=== PATIENT | female | born 1965 | race Caucasian/White ===

== ENCOUNTER 2020-06-04 10:36 | Inpatient (IN) | payer OTHER, SELFPAY ==
--- NOTE | ~2020-06-04 | XR_ITS ---
EXAMINATION: XR CHEST CLINICAL INFORMATION: Chest pain COMPARISON: Chest radiographs 05/20/2009 TECHNIQUE: Frontal view of the chest was obtained. FINDINGS: The lungs are clear. There is no airspace consolidation or groundglass opacity. No pneumothorax, pleural reaction, or effusion. The heart is normal in size and the hilar and mediastinal contours are normal. No acute bony abnormality. Probable bone island overlying proximal medial right humerus is stable from remote radiographs 2009. XR/XR chest 1V IMPRESSION: Normal study.
[2020-06-04 10:51] VITALS: BP 150/96; PULSE 83; RESP 17; TEMP 37.1; O2SAT 100; BMI 29.1
--- NOTE | 2020-06-04 11:12 | ECG_ITS ---
Test Reason : WEAKNESS Blood Pressure : / mmHG Vent. Rate : 070 BPM Atrial Rate : 070 BPM P-R Int : 136 ms QRS Dur : 108 ms QT Int : 474 ms P-R-T Axes : 027 060 129 degrees QTc Int : 511 ms Normal sinus rhythm Cannot rule out Anterior infarct , age undetermined T wave abnormality, consider lateral ischemia Prolonged QT Abnormal ECG When compared with ECG of 21-MAY-2009 07:21, Minimal criteria for Anterior infarct are now Present T wave inversion now evident in Lateral leads Referred By: Joelle Hubbard Electronically Signed By:GILLIAN VICTORIA
--- NOTE | 2020-06-04 11:14 | ED.GENADULT ---
HPI - General Adult General Chief complaint: Back Pain/Injury Stated complaint: headache, back pain Time Seen by Provider: 06/04/20 11:11 Source: patient Mode of arrival: ambulatory History of Present Illness HPI narrative: 54-year-old Female with a past medical history of hypertension presenting to the ED complaining of substernal chest tightness/soreness radiating to right shoulder s/p vigorous walk last night. Reports feeling anxious about symptoms and worried about her heart, with mild associated SOB. Denies fever, chills, cough, abdominal pain, nausea/vomiting, numbness/tingling, neck/back pain, LE edema, recent travel Related Data Allergies Allergy/AdvReac Type Severity Reaction Status Date / Time No Known Allergies Allergy Unverified 11/29/19 15:57 Review of Systems Review of Systems: Constitutional: No Fever, No Chills, No Fatigue, No Malaise Cardiovascular: + Chest Pain, +SOB, No Edema, No Palpitations Respiratory: No Cough, No Dyspnea Gastrointestinal: No Nausea, No Vomiting, No Abdominal pain Musculoskeletal: No joint pain, No Myalgias, No Joint Swelling Skin: No Skin Lesions, No rash Neuro: No Weakness, No Numbness, No Paresthesias, No Dizziness Yes all other systems are reviewed and are negative FORMERLY [facility], [facility] Past Medical History Attestation statement: The following information was validated with the patient. Medical History (Updated 06/04/20 @ 12:54 by GONZALES Moore) HTN (hypertension) Social History Social History Alcohol intake: never Smoking Status: Never smoker Use of substances other than those prescribed or required for medical reasons: No Advance Directives: No (pt doesnt have one) Advance Directives Information Provided: Yes Physical Exam Vital Signs: Vital Signs: Last Vital Signs Temp 98.7 F 06/04/20 12:40 Pulse 70 06/04/20 12:40 Resp 18 06/04/20 12:40 BP 137/92 H 06/04/20 12:40 Pulse Ox 100 06/04/20 12:40 Body Mass Index 29.1 Const: Other: Anxious General: cooperative, healthy appearing and no acute distress Orientation/consciousness: patient oriented x3 Limitations: no limitations HENMT: Head: Yes normal to inspection Ears: hearing grossly normal bilaterally General nose exam: Normal external nose present Face and sinus: Yes normal facial exam Eyes: General: appearance normal, both eyes and all related structures EOM: EOMs intact bilaterally Neck: Neck: Yes normal visual inspection and Yes no meningeal signs Chest: Chest palpation & inspection: normal inspection of the chest and no crepitus Resp: Effort & Inspection: normal respiratory effort Auscultation: clear to auscultation bilaterally Cardio: Rate: regular rate Heart sounds: S1 normal heart sound present and S2 normal heart sound present Back/Spine/Pelvis: Other: Mild right upper scapular tenderness to palpation. No appreciable deformity. No midline thoracic/lumbar spinous tenderness Skin: Rashes: no rashes Wounds: no wounds Neuro: General: patient oriented x3 and no meningeal signs Gait exam (Neuro): Normal gait present Extrem: General: Yes normal to inspection Course Course Course Narrative: XR chest 1V IMPRESSION: Normal study. -1236--troponin elevated at 714 >> patient moved to Main ED, cardiology consulted >> completely echo ordered and heparin drip initiated per cardiology recs Medical Decision Making MDM Narrative Medical decision making narrative: 54-year-old Female with a past medical history of hypertension presenting to the ED complaining of substernal chest tightness/soreness radiating to right shoulder s/p vigorous walk last night. On exam VSS, NAD/well-appearing, anxious, right upper back/scapular tenderness to palpation, patient is nontoxic appearing, concern for anxiety reaction vs MSK pain vs ACS. Unlikely PE/CHF/pneumonia. Low concern for dissection Plan: EKG, labs, CXR, reassess Lab Data Result diagrams: 06/04/20 11:51 06/04/20 11:51 Labs: Lab Results 06/04/20 06/04/20 06/04/20 Range/Units 11:51 11:51 11:51 WBC 8.4 (4.8-10.8) X10*3/uL RBC 4.24 (4.20-5.50) X10*6/uL Hgb 12.8 (12.0-16.0) g/dl Hct 37.1 (37-47) % MCV 87.5 (80-98) fL MCH 30.2 (27.0-33.0) pg MCHC 34.5 (31.0-35.0) g/dl RDW 11.9 (11.0-16.0) % Plt Count 207 (160-400) X10*3/uL MPV 10.0 (9.4-12.3) fL Immature Gran % (Auto) 0.4 (0.0-0.4) % Neut % (Auto) 66.4 (45-73) % Lymph % (Auto) 23.7 (20-40) % Piatt % (Auto) 8.5 (2-11) % Eos % (Auto) 0.6 (0-4) % Baso % (Auto) 0.4 (0-2) % Lymph # (Auto) 2.0 (1.2-4.9) X10*3/uL Piatt # (Auto) 0.7 (0.1-1.2) X10*3/uL Eos # (Auto) 0.1 (0.0-0.4) X10*3/uL Baso # (Auto) 0.0 (0.0-0.2) X10*3/uL Abs Immat Gran (auto) 0.03 (0.00-0.03) X10*3/uL Absolute Neuts (auto) 5.6 (2.0-8.3) X10*3/uL Absolute Nucleated RBC 0.000 (0.0-0.012) X10*3/uL Nucleated RBC % (auto) 0.0 (0.0-0.2) /100WBC Hold Blue Top SEE NOTE Sodium 137 (135-145) mmol/L Potassium 4.2 (3.3-5.1) mmol/L Chloride 102 (96-108) mmol/L Carbon Dioxide 22 (22-29) mmol/L Anion Gap 17 (12-20) BUN 16 (9-16) mg/dL Creatinine 0.87 (0.5-1.4) mg/dL Estim Creat Clear Calc 76.9 Estimated GFR > 60 Random Glucose 244 H (60-115) mg/dL Calcium 9.3 (8.4-10.2) mg/dL Magnesium 1.7 (1.6-2.6) mg/dL Troponin I High Sens (<3.5-17.0) ng/L // Range/Units 11:51 WBC (4.8-10.8) X10*3/uL RBC (4.20-5.50) X10*6/uL Hgb (12.0-16.0) g/dl Hct (37-47) % MCV (80-98) fL MCH (27.0-33.0) pg MCHC (31.0-35.0) g/dl RDW (11.0-16.0) % Plt Count (160-400) X10*3/uL MPV (9.4-12.3) fL Immature Gran % (Auto) (0.0-0.4) % Neut % (Auto) (45-73) % Lymph % (Auto) (20-40) % Piatt % (Auto) (2-11) % Eos % (Auto) (0-4) % Baso % (Auto) (0-2) % Lymph # (Auto) (1.2-4.9) X10*3/uL Piatt # (Auto) (0.1-1.2) X10*3/uL Eos # (Auto) (0.0-0.4) X10*3/uL Baso # (Auto) (0.0-0.2) X10*3/uL Abs Immat Gran (auto) (0.00-0.03) X10*3/uL Absolute Neuts (auto) (2.0-8.3) X10*3/uL Absolute Nucleated RBC (0.0-0.012) X10*3/uL Nucleated RBC % (auto) (0.0-0.2) /100WBC Hold Blue Top Sodium (135-145) mmol/L Potassium (3.3-5.1) mmol/L Chloride (96-108) mmol/L Carbon Dioxide (22-29) mmol/L Anion Gap (12-20) BUN (9-16) mg/dL Creatinine (0.5-1.4) mg/dL Estim Creat Clear Calc Estimated GFR Random Glucose (60-115) mg/dL Calcium (8.4-10.2) mg/dL Magnesium (1.6-2.6) mg/dL Troponin I High Sens 714.0 H (<3.5-17.0) ng/L ECG Data Attestation: I personally reviewed and interpreted this ECG as follows: Interpretation: EKG normal sinus rhythm. Inverted T-waves in V4 through V6. Prolonged QTC of 511 Discharge Plan Discharge Clinical Impression: Acute non-ST elevation myocardial infarction (NSTEMI)
[2020-06-04 11:56] LABS: MANUAL DIFF FLAG NO
[2020-06-04 11:57] LABS: Basophils Percent Auto 0.4 % (0-2); Eosinophils Absolute Auto 0.1 X10*3/uL (0.0-0.4); Eosinophils Percent Auto 0.6 % (0-4); Hematocrit 37.1 % (37-47); Hemoglobin 12.8 g/dl (12.0-16.0); Imm Gran Abs Auto 0.03 X10*3/uL (0.00-0.03); Imm Gran Pct Auto 0.4 % (0.0-0.4); Lymphocytes Percent Auto 23.7 % (20-40); Mean Corpuscular HGB Conc 34.5 g/dl (31.0-35.0); Mean Corpuscular Hemoglobin 30.2 pg (27.0-33.0); Mean Corpuscular Volume 87.5 fL (80-98); Monocytes Absolute Auto 0.7 X10*3/uL (0.1-1.2); Monocytes Percent Auto 8.5 % (2-11); Neutrophils Absolute Auto 5.6 X10*3/uL (2.0-8.3); Neutrophils Percent Auto 66.4 % (45-73); Platelet Count 207 X10*3/uL (160-400); Red Blood Count 4.24 X10*6/uL (4.20-5.50); Red Cell Distribution Width 11.9 % (11.0-16.0); White Blood Count 8.4 X10*3/uL (4.8-10.8)
[2020-06-04 12:18] LABS: Anion Gap 17 (12-20); Blood Urea Nitrogen 16 mg/dL (9-16); Calcium 9.3 mg/dL (8.4-10.2); Carbon Dioxide 22 mmol/L (22-29); Chloride 102 mmol/L (96-108); Creatinine Clr Calc Pharmacy 76.9; Estimated Glomerular Filt Rate > 60; Glucose Random 244 mg/dL (60-115); Magnesium 1.7 mg/dL (1.6-2.6); Potassium 4.2 mmol/L (3.3-5.1); Sodium 137 mmol/L (135-145)
[2020-06-04 12:40] VITALS: BP 137/92; PULSE 70; RESP 18; TEMP 37.1; O2SAT 100
--- NOTE | 2020-06-04 12:40 | CA_ITS ---
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 The visually estimated ejection fraction is between 25-30%. - The entire apex, the mid anterolateral, mid inferoseptal, and mid anteroseptal segments are akinetic. - No obvious valvular pathology seen on this study. - Mild pulmonary hypertension is present. Findings Left Ventricle Normal left ventricular cavity size. There is mildly increased left ventricular wall thickness. The left ventricular systolic function is severely decreased. The visually estimated ejection fraction is between 25 30%. There is evidence of regional wall motion abnormalities. Evidence suggests grade I (mild) diastolic dysfunction. Wall Motion Rest Echo Findings The entire apex, the mid anterolateral, mid inferoseptal, and mid anteroseptal segments are akinetic. Right Ventricle Normal right ventricular cavity size and systolic function. Atria Both atria are normal in size. Aortic Valve There is a normal trileaflet aortic valve. There is no aortic valve stenosis. There is no aortic valve regurgitation. Mitral Valve The mitral valve appears normal. There is trace mitral valve regurgitation. There is no mitral valve stenosis. Pulmonic Valve The pulmonic valve was not well visualized. Tricuspid Valve Normal tricuspid valve structure. There is mild tricuspid valve regurgitation. The right ventricular systolic pressure is 36 mmHg. Mild pulmonary hypertension is present. Great Vessels The aortic annulus, sinuses of valsalva, and asc aorta are normal in size. Venous The inferior vena cava is normal in size and collapses greater than 50% with inspiration. Pericardium/Pleural There is no evidence of pericardial effusion. Prior Study Comparison No prior study available for comparison. Recommendations, Care & Conclusions No obvious valvular pathology seen on this study. Measurements 2D Linear Measurements IVSd: 1.27 0.6-0.9/0.6-1.0 cm LVIDd: 4.20 3.9-5.3/4.2-5.9 cm LVIDd Index: 2.25 2.4-3.2/2.2-3.1 cm/m2 LVIDs: 3.60 2.0-3.6 cm LVPWd: 1.27 0.7-1.1 cm Ao Root: 3.10 2.1-3.5 cm LA Diam: 3.60 2.7-3.8/3.0-4.0 cm LAIDs Index: 1.93 1.5-2.3 cm/m2 LV Mass: 241.38 67-162/88-224 g LV Mass Index: 129.08 43-95/49-115 g/m2 LVOT Diam: 2.20 3.0+(-)1.3 cm 2D Systolic Function EF 4C: 32.20 >55% EF 2C: 20.00 >55% EF BiP: 24.50 >55% Mitral Valve MV Pk E: 0.52 MV PK A: 1.02 MV Decel Time: 116.00 E/A: 0.50 E'Lateral: 3.96 E'Medial: 7.35 E/E' Med: 7.10 E/E' Lat: 13.10 PHT: 34.00 MVA PHT: 6.47 Decel Larimer: 4.47 Aortic Valve AoV Pk Cornel: 1.27 AoV Mn Cornel: 0.80 AoV VTI: 0.28 AoV Pk Grad: 6.00 Aov Mn Grad: 3.00 SONU Cont.VTI: 2.21 LVOT LVOT Pk Cornel: 0.78 LVOT Mn Cornel: 0.51 LVOT VTI: 0.16 LVOT Pk Grad: 2.00 LVOT Mn Grad: 1.00 LVOT Diam: 2.20 LVOT Area: 3.80 Diastolic Function MV Pk E: 0.52 MV Pk A: 1.02 E/A: 0.50 E'Medial: 7.35 E/E' Med: 7.10 E' Laterial: 3.96 E/E' Lat: 13.10 Tricuspid Valve TR Pk Cornel: 2.86 TR Pk Grad: 33.00 RA Press: 3.00 RVSP: 36.00 Great Vessels Aorta Ao Root-2D: 3.10 2.0-3.7 cm Ao Asc: 3.00 2.1-3.4 cm Pulmonary Valve PV Pk Cornel: 1.00 Peak PV Grad: 4.00 Updated in Other Vendor System with Status of Final Jose Swanson MD electronically signed on 06/04/2020 4:09:27 PM with status of Final
[2020-06-04 12:45] LABS: Prothrombin Time 12.4 SEC (10.8-13.0)
[2020-06-04 12:47] LABS: Partial Thromboplastin Time 34.1 SEC (24.1-38.0)
[2020-06-04 12:55] LABS: Alanine Aminotransferase 84 U/L (0-31); Albumin Level 4.4 g/dL (3.5-5.0); Alkaline Phosphatase 77 U/L (39-117); Aspartate Amino Transferase 63 U/L (5-31); Bilirubin Direct 0.2 mg/dL (0.0-0.5); Bilirubin Total 0.5 mg/dL (0.0-1.0)
[2020-06-04 13:14] LABS: B Type Natriuretic Peptide 317 pg/mL (<100)
[2020-06-04 13:49] VITALS: BMI 31.1
[2020-06-04] MEDS: Heparin Sodium,Porcine/1/2NS 25,000 UNIT/250 ML IV.SOLN 10 UNIT IVCONT (13:51)
[2020-06-04 14:11] LABS: COVID-19 Test Negative (Negative); IDNOW Serial# 9DD0AD1C
[2020-06-04 15:21] VITALS: BP 133/88; PULSE 78; RESP 13; O2SAT 100
[2020-06-04 15:39] VITALS: BP 128/91; PULSE 83; RESP 17; TEMP 36.7; O2SAT 100
--- NOTE | 2020-06-04 15:41 | PM.IMHP ---
History of Present Illness Date of Service: 06/04/20 Chief Complaint: neck pain 54F presented with vague complaints of neck and right shoulder pain and chest pounding. patient states she went for a vigorous walk the night ptp and starting feeling uncomfortable after. she took some aspirin and decided to sleep on it. the next morning she still felt the neck pain, right shoulder aching and chest pounding. she denies sob, chills, fever, cough, diaphoresis. denies prior RI, reports remote negative stress test. in ED noted to have ischemic changes on EKG and troponin of 700. she was started on heparin. Review of Systems Review of Systems: Constitutional: Denies fever, denies Chills Eyes: denies blurry vision ENT: denies sore throat CVS: chest pain Respiratory: Denies dyspnea GI: no abdominal pain : denies dysuria MSK: denies neck pain Skin: denies rash Neuro: denies specific motor weakness Psych: denies suicidal ideation Endocrine: denies heat/cold intoleratnce Hematologic: denies easy bleeding Allergy: denies hives [facility] Medical History DM (diabetes mellitus) HTN (hypertension) HUDSON (nonalcoholic steatohepatitis) Family History Father No problems noted. Family history: reviewed and not pertinent Social History Alcohol intake: never Smoking Status: Never smoker Use of substances other than those prescribed or required for medical reasons: No Advance Directives: No (pt doesnt have one) Advance Directives Information Provided: Yes Meds Allergies Allergy/AdvReac Type Severity Reaction Status Date / Time No Known Allergies Allergy Unverified 11/29/19 15:57 Active Medications: Current Medications Generic Name Dose Route Start Last Admin Trade Name Freq PRN Reason Stop Dose Admin Heparin Sodium (Porcine) 3,200 unit 06/04/20 12:50 Heparin Sodium,Porcine 5,000 Unit/Ml Vial 40 unit/kg (3200 unit) IVPUSH BOLUS PRN 40 unit/kg - Heparin Protocol Heparin Sodium (Porcine) 6,400 unit 06/04/20 12:50 Heparin Sodium,Porcine 5,000 Unit/Ml Vial 80 unit/kg (6400 unit) IVPUSH BOLUS PRN 80 unit/kg - Heparin Protocol Heparin Sodium/Sodium Chloride 25,000 unit in 250 mls @ 0 mls/hr 06/04/20 13:00 06/04/20 13:51 IVCONT 12.6 units/kg/hr .Q0M JAIME 10 mls/hr Administration Protocol Per Protocol Pharmacy Consult 1 each 06/04/20 13:15 Consult Rx Perform Med Rec MISCELLANE ONCE PRN Consult order Pharmacy Consult 1 each 06/04/20 14:38 Consult Rx Perform Med Rec MISCELLANE ONCE PRN Consult order Physical Exam Vital Signs and Narrative: Vital Signs: Last Vital Signs Temp 98.7 F 06/04/20 12:40 Pulse 78 06/04/20 15:21 Resp 13 06/04/20 15:21 BP 133/88 06/04/20 15:21 Pulse Ox 100 06/04/20 15:21 Body Mass Index 31.1 General: no acute distress HEENT: atraumatic Neck: normal to visual inspection CVS: S1, S2, RRR Resp: CTA bilateral Chest: non tender GI: soft, non tender, non distended : no CVA tenderness Skin: no rashes Extremities: no edema Neuro: Oriented X3, grossly intact Psych: cooperative Results Labs CBC and Chem 7: 06/04/20 11:51 06/04/20 11:51 Labs: Laboratory Results - last 24 hr 06/04/20 06/04/20 06/04/20 11:51 11:51 11:51 MCV 87.5 MCH 30.2 MCHC 34.5 RDW 11.9 Plt Count 207 MPV 10.0 Immature Gran % (Auto) 0.4 Neut % (Auto) 66.4 Lymph % (Auto) 23.7 Mcdonald % (Auto) 8.5 Eos % (Auto) 0.6 Baso % (Auto) 0.4 Lymph # (Auto) 2.0 Mcdonald # (Auto) 0.7 Eos # (Auto) 0.1 Baso # (Auto) 0.0 Abs Immat Gran (auto) 0.03 Absolute Neuts (auto) 5.6 Absolute Nucleated RBC 0.000 Nucleated RBC % (auto) 0.0 PT 12.4 INR 1.0 APTT 34.1 Hold Blue Top SEE NOTE Anion Gap 17 Estim Creat Clear Calc 76.9 Estimated GFR > 60 Random Glucose 244 H Calcium 9.3 Magnesium 1.7 Total Bilirubin 0.5 Direct Bilirubin 0.2 AST 63 H ALT 84 H Alkaline Phosphatase 77 Troponin I High Sens B-Natriuretic Peptide Total Protein 7.0 Albumin 4.4 COVID-19 (MAYELA) COVID-19 Clin Com 06/04/20 06/04/20 06/04/20 11:51 11:51 13:43 MCV MCH MCHC RDW Plt Count MPV Immature Gran % (Auto) Neut % (Auto) Lymph % (Auto) Mcdonald % (Auto) Eos % (Auto) Baso % (Auto) Lymph # (Auto) Mcdonald # (Auto) Eos # (Auto) Baso # (Auto) Abs Immat Gran (auto) Absolute Neuts (auto) Absolute Nucleated RBC Nucleated RBC % (auto) PT INR APTT Hold Blue Top Anion Gap Estim Creat Clear Calc Estimated GFR Random Glucose Calcium Magnesium Total Bilirubin Direct Bilirubin AST ALT Alkaline Phosphatase Troponin I High Sens 714.0 H B-Natriuretic Peptide 317 H Total Protein Albumin COVID-19 (MAYELA) Negative COVID-19 Clin Com See Note Imaging Radiologist's Impressions: Impressions Chest X-Ray 06/04/20 11:12 IMPRESSION: Normal study. Assessment and Plan (1) HUDSON (nonalcoholic steatohepatitis): Status: Acute (2) DM (diabetes mellitus): Status: Acute (3) HTN (hypertension): Status: Acute (4) Acute non-ST elevation myocardial infarction (NSTEMI): Status: Acute 54F presented with chest discomfort found to have nstemi nstemi heparin, asa, statin, betablocker, cardio, echo, check lipids htn atenolol, monitor DM reports losing weight and getting off meds with hyperglycemia here - 244 will start sliding scale check a1c HUDSON weight loss
[2020-06-04 16:03] LABS: Glucose, Whole Blood 207 mg/dL (60-115)
[2020-06-04 16:22] LABS: Troponin-I High Sensitivity 625.4 ng/L (<3.5-17.0)
--- NOTE | 2020-06-04 16:30 | PM.CNCAR ---
History of Present Illness History of Present Illness Date of Service: 06/04/20 Consult reason: myocardial infarction Chief complaint: Nstemi Narrative: This is a cardiology consultation regarding elevated troponins. Patient does not have any known coronary disease. She has hypertension on atenolol. She states that she was overweight few years ago and at that time, she was a diabetic as well. After losing weight, that has apparently improved. Yesterday, she went for a brisk walk and at that time she did not feel very comfortable. She felt that she was having discomfort in the upper back area between the shoulder blades. No precordial type chest pain. She was also feeling a bit short of breath. Hence presented to the ER and evaluation showed ischemic changes in the EKG and also elevated troponins. Today she feels okay and currently she is pain free. Review of Systems Review of Systems: Yes all other systems are reviewed and are negative Cardiovascular: Cardiovascular: Reports as per HPI, Reports no additional cardiovascular complaints, Denies acrocyanosis, Denies cool extremities, Denies painful fingertips, Denies chest pain, Denies chest pain at rest, Denies diaphoresis, Denies syncope, Denies irregular heart rhythm, Denies claudication, Denies leg edema, Denies lightheadedness, Denies palpitations and Reports dyspnea Respiratory: Respiratory: Reports dyspnea Neurologic: Denies syncope Endocrine: Endocrine: Denies palpitations [facility] Past Medical History Medical History (Updated 06/04/20 @ 16:33 by Jose Swanson MD) DM (diabetes mellitus) Essential hypertension HTN (hypertension) HUDSON (nonalcoholic steatohepatitis) Type 2 diabetes mellitus with unspecified complications Family History Family History Father No problems noted. Family history: reviewed and not pertinent Social History Social History Alcohol intake: never Smoking Status: Never smoker Use of substances other than those prescribed or required for medical reasons: No Advance Directives: No (pt doesnt have one) Advance Directives Information Provided: Yes Meds Allergies Allergy/AdvReac Type Severity Reaction Status Date / Time No Known Allergies Allergy Unverified 11/29/19 15:57 Active Medications: Current Medications Generic Name Dose Route Start Last Admin Trade Name Freq PRN Reason Stop Dose Admin Acetaminophen 650 mg 03/24/21 15:50 Acetaminophen 325 Mg Tablet PO Q6H PRN Pain, Mild (Pain Scale 1-3) Aspirin 81 mg 06/05/20 09:00 Aspirin 81 Mg Tab.Chew PO DAILY [facility] Atenolol 25 mg 06/05/20 09:00 Atenolol 25 Mg Tablet PO DAILY [facility] Protocol Atorvastatin Calcium 80 mg 06/04/20 21:00 Atorvastatin Calcium 80 Mg Tablet PO BEDTIME [facility] Heparin Sodium (Porcine) 3,200 unit 06/04/20 12:50 Heparin Sodium,Porcine 5,000 Unit/Ml Vial 40 unit/kg (3200 unit) IVPUSH BOLUS PRN 40 unit/kg - Heparin Protocol Heparin Sodium (Porcine) 6,400 unit 06/04/20 12:50 Heparin Sodium,Porcine 5,000 Unit/Ml Vial 80 unit/kg (6400 unit) IVPUSH BOLUS PRN 80 unit/kg - Heparin Protocol Heparin Sodium/Sodium Chloride 25,000 unit in 250 mls @ 0 mls/hr 06/04/20 13:00 06/04/20 13:51 IVCONT 12.6 units/kg/hr .Q0M [facility] 10 mls/hr Administration Protocol Per Protocol Insulin Human Lispro 0 unit 06/04/20 16:30 Insulin Lispro 100 Unit/Ml 3 Ml Vial SUBCUT QIDACHS [facility] Protocol Pharmacy Consult 1 each 06/04/20 13:15 Consult Rx Perform Med Rec MISCELLANE ONCE PRN Consult order Pharmacy Consult 1 each 06/04/20 14:38 Consult Rx Perform Med Rec MISCELLANE ONCE PRN Consult order Sodium Chloride 3 ml 06/04/20 16:00 0.9 % Sodium Chloride Flush 3 Ml [facility] Medications Medication Instructions Recorded Confirmed Last Taken Type atenolol 12.5 mg PO BEDTIME 06/04/20 06/04/20 06/03/20 History Physical Exam Vital Signs: Vital Signs: Last Vital Signs Temp 98.1 F 06/04/20 15:39 Pulse 83 06/04/20 15:39 Resp 17 06/04/20 15:39 BP 128/91 H 06/04/20 15:39 Pulse Ox 100 06/04/20 15:39 Body Mass Index 31.1 Const: General: cooperative, comfortable and no acute distress Orientation/consciousness: patient oriented x3 HENMT: Other: Unremarkable Neck: Neck: Yes normal visual inspection Chest: Chest palpation & inspection: normal inspection of the chest Resp: Auscultation: clear to auscultation bilaterally, no crackles and no wheezes Cardio: Jugular venous distension: no JVD Palpation: normal PMI Heart sounds: S1 normal heart sound present, S2 normal heart sound present, no gallops, no murmurs and no rubs GI: Palpation (GI): Soft to palpation Back/Spine/Pelvis: Other: unremarkable Skin: General skin exam: no rashes or lesions noted Neuro: General: patient oriented x3 Extrem: General: Yes no clubbing, cyanosis or edema Psych: Mental Status: mental status grossly normal Results Labs and Meds Result diagrams: 06/04/20 11:51 06/04/20 11:51 Lab results: Laboratory Results - last 24 hr 06/04/20 06/04/20 06/04/20 11:51 11:51 11:51 WBC 8.4 RBC 4.24 Hgb 12.8 Hct 37.1 MCV 87.5 MCH 30.2 MCHC 34.5 RDW 11.9 Plt Count 207 MPV 10.0 Immature Gran % (Auto) 0.4 Neut % (Auto) 66.4 Lymph % (Auto) 23.7 [place] % (Auto) 8.5 Eos % (Auto) 0.6 Baso % (Auto) 0.4 Lymph # (Auto) 2.0 [place] # (Auto) 0.7 Eos # (Auto) 0.1 Baso # (Auto) 0.0 Abs Immat Gran (auto) 0.03 Absolute Neuts (auto) 5.6 Absolute Nucleated RBC 0.000 Nucleated RBC % (auto) 0.0 PT 12.4 INR 1.0 APTT 34.1 Hold Blue Top SEE NOTE Sodium 137 Potassium 4.2 Chloride 102 Carbon Dioxide 22 Anion Gap 17 BUN 16 Creatinine 0.87 Estim Creat Clear Calc 76.9 Estimated GFR > 60 POC Glucose Random Glucose 244 H Calcium 9.3 Magnesium 1.7 Total Bilirubin 0.5 Direct Bilirubin 0.2 AST 63 H ALT 84 H Alkaline Phosphatase 77 Troponin I High Sens B-Natriuretic Peptide Total Protein 7.0 Albumin 4.4 COVID-19 (MAYELA) COVID-19 Clin Com 06/04/20 06/04/20 06/04/20 11:51 11:51 13:43 WBC RBC Hgb Hct MCV MCH MCHC RDW Plt Count MPV Immature Gran % (Auto) Neut % (Auto) Lymph % (Auto) [place] % (Auto) Eos % (Auto) Baso % (Auto) Lymph # (Auto) [place] # (Auto) Eos # (Auto) Baso # (Auto) Abs Immat Gran (auto) Absolute Neuts (auto) Absolute Nucleated RBC Nucleated RBC % (auto) PT INR APTT Hold Blue Top Sodium Potassium Chloride Carbon Dioxide Anion Gap BUN Creatinine Estim Creat Clear Calc Estimated GFR POC Glucose Random Glucose Calcium Magnesium Total Bilirubin Direct Bilirubin AST ALT Alkaline Phosphatase Troponin I High Sens 714.0 H B-Natriuretic Peptide 317 H Total Protein Albumin COVID-19 (MAYELA) Negative COVID-19 SureVisit Com See Note 06/04/20 06/04/20 15:37 15:56 WBC RBC Hgb Hct MCV MCH MCHC RDW Plt Count MPV Immature Gran % (Auto) Neut % (Auto) Lymph % (Auto) [place] % (Auto) Eos % (Auto) Baso % (Auto) Lymph # (Auto) [place] # (Auto) Eos # (Auto) Baso # (Auto) Abs Immat Gran (auto) Absolute Neuts (auto) Absolute Nucleated RBC Nucleated RBC % (auto) PT INR APTT Hold Blue Top Sodium Potassium Chloride Carbon Dioxide Anion Gap BUN Creatinine Estim Creat Clear Calc Estimated GFR POC Glucose 207 H Random Glucose Calcium Magnesium Total Bilirubin Direct Bilirubin AST ALT Alkaline Phosphatase Troponin I High Sens 625.4 H B-Natriuretic Peptide Total Protein Albumin COVID-19 (MAYELA) COVID-19 Clin Com ECG Attestation: I personally reviewed and interpreted this ECG as follows: Interpretation: EKG with sinus rhythm, cannot exclude old anterior infarct; inverted T-waves in lead 1, aVL, V4 to V6 Imaging Radiologist's impression: Impressions Chest X-Ray 06/04/20 11:12 IMPRESSION: Normal study. Echocardiogram today- Conclusions: - The left ventricular systolic function is severely decreased. The visually estimated ejection fraction is between 25-30%. - The entire apex, the mid anterolateral, mid inferoseptal, and mid anteroseptal segments are akinetic. - No obvious valvular pathology seen on this study. - Mild pulmonary hypertension is present. Assessment and Plan (1) NSTEMI (non-ST elevated myocardial infarction): Status: Acute (2) Essential hypertension: Status: Acute (3) Type 2 diabetes mellitus with unspecified complications: Status: Acute (4) Cardiomyopathy: Qualifiers: Cardiomyopathy type: other Qualified Code(s): I42.8 - Other cardiomyopathies Status: Acute Based on echocardiogram, either she has coronary disease or stress-induced cardiomyopathy. She does have numerous risk factors. Next step would be diagnostic cardiac catheterization. We will send her to [facility] for the same. Continue IV heparin. Continue aspirin. Can get statins but she does have some baseline LFT abnormality and hence use moderate dose for now. Patient agreeable for transfer.
--- NOTE | 2020-06-04 16:33 | PM.DS ---
DS: Providers Provider Date of Service: 06/04/20 Date of admission: 06/04/20 15:38 Primary care physician: Dayanara Rob MD Consults: 06/04/20 15:50 Consult to Cardiology Routine Consulting Provider: Jose Swanson Reason for consultation: nstemi DS: Diagnosis Discharge Diagnosis (1) HUDSON (nonalcoholic steatohepatitis): Status: Acute (2) DM (diabetes mellitus): Status: Acute (3) HTN (hypertension): Status: Acute (4) Acute non-ST elevation myocardial infarction (NSTEMI): Status: Acute DS: Medications Discharge Medications Home Medications: Home Medications Medication Instructions Recorded Confirmed atenolol 12.5 mg PO BEDTIME 06/04/20 06/04/20 Previous Rx's Medication Instructions Recorded aspirin 81 mg PO DAILY #0 tab 06/04/20 atorvastatin 80 mg PO BEDTIME #0 tab 06/04/20 heparin (porcine) 3,200 unit IVPUSH BOLUS PRN #0 ml 06/04/20 heparin (porcine) 6,400 unit IVPUSH BOLUS PRN #0 ml 06/04/20 heparin(porcine) in 0.45% NaCl 25,000 unit CONTINUOUS IV INFUSION 06/04/20 .Q0M #0 ml insulin lispro [Humalog U-100 1 unit SUBCUT QIDACHS #0 ml 06/04/20 Insulin] DS: Summary Hospital Course Hospital Course: patient was admitted for nstemi. she was started on iv heparin, first troponin was 714, second 625. she was seen by cardiology who recommended transfer to [facility] for cardiac cath. of note patient reports she has history of DM, but after losing weight was taken off meds. here, her glucose has been in low 200s, she may need to be medicated again. also noted to have elevated ast and alt, 63/84. patient is aware of a diagnosis of HUDSON. Time Spent with Patient Time attestation: Total time spent providing and/or coordinating discharge services: Discharge coordination time: Greater than 30 minutes Physical Exam Vital Signs: Vital Signs: Last Vital Signs Temp 98.1 F 06/04/20 15:39 Pulse 83 06/04/20 15:39 Resp 17 06/04/20 15:39 BP 128/91 H 06/04/20 15:39 Pulse Ox 100 06/04/20 15:39 Body Mass Index 31.1 General: AO X 3, no acute distress Resp: CTA bilateral CVS: S1,S2,RRR GI: soft, non tender, non distended Neuro: motor grossly intact Psych: appropriate affect DS: Data Data Completed and Pending Labs on day of discharge: Laboratory Results - last 24 hr 06/04/20 06/04/20 06/04/20 11:51 11:51 11:51 WBC 8.4 RBC 4.24 Hgb 12.8 Hct 37.1 MCV 87.5 MCH 30.2 MCHC 34.5 RDW 11.9 Plt Count 207 MPV 10.0 Immature Gran % (Auto) 0.4 Neut % (Auto) 66.4 Lymph % (Auto) 23.7 [place] % (Auto) 8.5 Eos % (Auto) 0.6 Baso % (Auto) 0.4 Lymph # (Auto) 2.0 [place] # (Auto) 0.7 Eos # (Auto) 0.1 Baso # (Auto) 0.0 Abs Immat Gran (auto) 0.03 Absolute Neuts (auto) 5.6 Absolute Nucleated RBC 0.000 Nucleated RBC % (auto) 0.0 PT 12.4 INR 1.0 APTT 34.1 Hold Blue Top SEE NOTE Sodium 137 Potassium 4.2 Chloride 102 Carbon Dioxide 22 Anion Gap 17 BUN 16 Creatinine 0.87 Estim Creat Clear Calc 76.9 Estimated GFR > 60 POC Glucose Random Glucose 244 H Calcium 9.3 Magnesium 1.7 Total Bilirubin 0.5 Direct Bilirubin 0.2 AST 63 H ALT 84 H Alkaline Phosphatase 77 Troponin I High Sens B-Natriuretic Peptide Total Protein 7.0 Albumin 4.4 COVID-19 (MAYELA) COVID-19 Clin Com 06/04/20 06/04/20 06/04/20 11:51 11:51 13:43 WBC RBC Hgb Hct MCV MCH MCHC RDW Plt Count MPV Immature Gran % (Auto) Neut % (Auto) Lymph % (Auto) [place] % (Auto) Eos % (Auto) Baso % (Auto) Lymph # (Auto) [place] # (Auto) Eos # (Auto) Baso # (Auto) Abs Immat Gran (auto) Absolute Neuts (auto) Absolute Nucleated RBC Nucleated RBC % (auto) PT INR APTT Hold Blue Top Sodium Potassium Chloride Carbon Dioxide Anion Gap BUN Creatinine Estim Creat Clear Calc Estimated GFR POC Glucose Random Glucose Calcium Magnesium Total Bilirubin Direct Bilirubin AST ALT Alkaline Phosphatase Troponin I High Sens 714.0 H B-Natriuretic Peptide 317 H Total Protein Albumin COVID-19 (MAYELA) Negative COVID-19 Clin Com See Note 06/04/20 06/04/20 15:37 15:56 WBC RBC Hgb Hct MCV MCH MCHC RDW Plt Count MPV Immature Gran % (Auto) Neut % (Auto) Lymph % (Auto) [place] % (Auto) Eos % (Auto) Baso % (Auto) Lymph # (Auto) [place] # (Auto) Eos # (Auto) Baso # (Auto) Abs Immat Gran (auto) Absolute Neuts (auto) Absolute Nucleated RBC Nucleated RBC % (auto) PT INR APTT Hold Blue Top Sodium Potassium Chloride Carbon Dioxide Anion Gap BUN Creatinine Estim Creat Clear Calc Estimated GFR POC Glucose 207 H Random Glucose Calcium Magnesium Total Bilirubin Direct Bilirubin AST ALT Alkaline Phosphatase Troponin I High Sens 625.4 H B-Natriuretic Peptide Total Protein Albumin COVID-19 (MAYELA) COVID-19 Clin Com Discharge Plan Discharge Patient Disposition: General Acute Hospital Referrals: Dayanara Rob MD [Primary Care Provider] - Discharge Medications: New atorvastatin 80 mg Tablet 80 mg PO BEDTIME Qty: 0 RF: 0 heparin (porcine) 5,000 unit/mL Solution 6,400 unit IVPUSH BOLUS PRN (Reason: 80 Unit/Kg - Heparin Protocol) Qty: 0 RF: 0 heparin (porcine) 5,000 unit/mL Solution 3,200 unit IVPUSH BOLUS PRN (Reason: 40 Unit/Kg - Heparin Protocol) Qty: 0 RF: 0 heparin(porcine) in 0.45% NaCl 25,000 unit/250 mL Parenteral Solution 25,000 unit continuous IV infusion .Q0M Qty: 0 RF: 0 aspirin 81 mg Tablet,Chewable 81 mg PO DAILY Qty: 0 RF: 0 insulin lispro [Humalog U-100 Insulin] 100 unit/mL Solution 1 unit subcut QIDACHS Qty: 0 RF: 0 Continued atenolol 25 mg Tablet 12.5 mg PO BEDTIME RF: 0 Discharge Orders: Discharge Order (Routine); Ordered 06/04/20 Ordered By: Kike Frazier Activity on Discharge: As tolerated Stand Alone Forms: Patient Portal Discharge page Care Plan Goals: revascularization Health Concerns: nstemi [place] [facility] [place]
[2020-06-04] MEDS: Insulin Lispro 100 UNIT/ML 3 ML VIAL SUBCUT (16:44)
[2020-06-04] MEDS: Atorvastatin Calcium 40 MG TABLET PO (16:44)
--- NOTE | 2020-06-04 17:25 | PC.NURSE ---
Report given to JESSICA Browning at [facility].
== END 2020-06-04 18:12 | disposition short-term general hospital (02) | DRG 190 ==
LOC: HO.ED 13:50 → HO.EDOVER 15:54
PROVIDERS: Physician Assistant; Admitting Provider Internal Medicine; Emergency Provider Emergency Medicine; PCP Internal Medicine; Visit Provider Internal Medicine
DX: I21.4 Non-ST elevation (NSTEMI) myocardial infarction (principal); I42.8 Other cardiomyopathies; E11.65 Type 2 diabetes mellitus with hyperglycemia; K75.81 Nonalcoholic steatohepatitis (NASH); I10 Essential (primary) hypertension; Z20.822 Contact with and (suspected) exposure to COVID-19; Z79.4 Long term (current) use of insulin; Z79.82 Long term (current) use of aspirin; Z79.899 Other long term (current) drug therapy
CPT/HCPCS: 36415; 71045; 80048; 80076; 82947; 83735; 83880; 84484; 85025; 85610; 85730; 87635; 93005; 93306; 96365; 96366; 96376; 99285

== ENCOUNTER → 2020-06-25 11:15 | Outpatient (BNVA) | payer OTHER, SELFPAY | PROVIDERS: PCP Internal Medicine; Visit Provider Nurse Practitioner Family ==

== ENCOUNTER → 2020-07-21 07:31 | Outpatient (REF) | payer OTHER, SELFPAY ==
--- NOTE | 2020-07-21 07:33 | CA_ITS ---
Transthoracic Echocardiogram Patient (Last, First, Middle): Ivett Townsend, Gender: Female Date of : 1965 Age: 54 Procedure Date: 07/21/2020 Procedure Type: Transthoracic Echocardiogram Location: OP Height: 165.1 cm Weight: 73.48 kg BSA: 1.81 m2 Heart Rate: bpm BP: 122 / 68 mmHg Table Machine Operator: CINDI Referring MD: Antonina Wilson LAUNCH MANAGERThai Symptoms: Z95.1 - Presence of aortocoronary bypass graft Study Quality: Good ECG Rhythm: Sinus Conclusions: - The left ventricular systolic function is normal. The visually estimated ejection fraction is between 60-65%. - Small to moderate pericardial effusion noted. Measurements- over the right atrium - 1.4cm; left ventricle - 1.3cm; nothing significant over left atrium or right ventricle. - There are no definitive echocardiographic findings of tamponade physiology. Findings Left Ventricle Normal left ventricular cavity size. There is normal left ventricular wall thickness. The left ventricular systolic function is normal. The visually estimated ejection fraction is between 60-65%. There is no evidence of regional wall motion abnormalities. Diastolic function is normal for age. Tricuspid Valve Normal tricuspid valve structure. There is trace tricuspid valve regurgitation. The pulmonary artery systolic pressure is normal. Venous The inferior vena cava is normal in size and collapses greater than 50% with inspiration. Pericardium/Pleural There are no definitive echocardiographic findings of tamponade physiology. Small to moderate pericardial effusion noted. Measurements- over the right atrium - 1.4cm; left ventricle - 1.3cm; nothing significant over left atrium or right ventricle. Prior Study Comparison Changes noted compared to prior study dated: 06/04/2020. Improved LVEF; pericardial effusion now seen. Measurements 2D Linear Measurements LVIDd: 5.07 3.9-5.3/4.2-5.9 cm LVIDd Index: 2.80 2.4-3.2/2.2-3.1 cm/m2 LVIDs: 3.19 2.0-3.6 cm 2D Systolic Function EF 4C: 60.20 >55% EF 2C: 62.60 >55% EF BiP: 61.60 >55% Mitral Valve MV Pk E: 0.93 MV PK A: 0.69 MV Decel Time: 278.00 E/A: 1.30 E'Lateral: 9.67 E'Medial: 6.00 E/E' Med: 15.50 E/E' Lat: 9.60 Diastolic Function MV Pk E: 0.93 MV Pk A: 0.69 E/A: 1.30 E'Medial: 6.00 E/E' Med: 15.50 E' Laterial: 9.67 E/E' Lat: 9.60 Updated in Other Vendor System with Status of Final Jose Swanson MD electronically signed on 07/21/2020 8:45:49 AM with status of Final
== END ==
LOC: HO.CARD 07:31
PROVIDERS: PCP Internal Medicine; Visit Provider Nurse Practitioner Family
DX: I42.8 Other cardiomyopathies (principal); Z95.1 Presence of aortocoronary bypass graft
CPT/HCPCS: 93005; 93308

== ENCOUNTER → 2020-08-05 07:30 | Outpatient (REF) | payer OTHER, SELFPAY ==
--- NOTE | 2020-08-05 07:34 | CA_ITS ---
Transthoracic Echocardiogram Patient (Last, First, Middle): Ivett Townsend, Gender: Female Date of : 1965 Age: 54 Procedure Date: 08/05/2020 Procedure Type: Transthoracic Echocardiogram Location: OP Height: 165.1 cm Weight: 72.58 kg BSA: 1.80 m2 Heart Rate: bpm BP: 119 / 78 mmHg Nurse Discharge: HUMPHREY Referring MD: Antonina Wilson CERTIFIED NURSE MIDWIFEThai Symptoms: Z95.1 - Presence of aortocoronary bypass graft Study Quality: Fair ECG Rhythm: Sinus Conclusions: - The left ventricular systolic function is normal. The visually estimated ejection fraction is between 60-65%. - Small to moderate pericardial effusion; measurements- over the left ventricle- 1.3cm; right atrium-0.8cm; no significant effusion elsewhere. Findings Left Ventricle Normal left ventricular cavity size. There is normal left ventricular wall thickness. The left ventricular systolic function is normal. The visually estimated ejection fraction is between 60-65%. There is no evidence of regional wall motion abnormalities. E/E prime ratio is between 8 and 15 consistent with indeterminate filling pressures. Evidence suggests grade I (mild) diastolic dysfunction. Right Ventricle Normal right ventricular cavity size and systolic function. Atria Both atria are normal in size. Aortic Valve There is a normal trileaflet aortic valve. There is no aortic valve stenosis. There is no aortic valve regurgitation. Mitral Valve The mitral valve appears normal. There is trace mitral valve regurgitation. There is no mitral valve stenosis. Pulmonic Valve The pulmonic valve was not well visualized. Tricuspid Valve There is trace tricuspid valve regurgitation. The pulmonary artery systolic pressure is normal. Great Vessels The aortic annulus, sinuses of valsalva, and asc aorta are normal in size. Venous The inferior vena cava is normal in size and collapses greater than 50% with inspiration. Pericardium/Pleural There are no definitive echocardiographic findings of tamponade physiology. Small to moderate pericardial effusion; measurements- over the left ventricle 1.3cm; right atrium-0.8cm; no significant effusion elsewhere. Prior Study Comparison No significant change compared to prior study dated: 07/21/2020. Measurements 2D Linear Measurements IVSd: 1.16 0.6-0.9/0.6-1.0 cm LVIDd: 5.52 3.9-5.3/4.2-5.9 cm LVIDd Index: 3.07 2.4-3.2/2.2-3.1 cm/m2 LVIDs: 2.95 2.0-3.6 cm LVPWd: 0.99 0.7-1.1 cm LA Diam: 3.90 2.7-3.8/3.0-4.0 cm LAIDs Index: 2.17 1.5-2.3 cm/m2 LV Mass: 293.79 67-162/88-224 g LV Mass Index: 163.22 43-95/49-115 g/m2 LVOT Diam: 2.00 3.0+(-)1.3 cm 2D Systolic Function EF 4C: 59.50 >55% Mitral Valve MV Pk E: 0.94 MV PK A: 0.64 MV Decel Time: 257.00 E/A: 1.50 E'Lateral: 8.49 E'Medial: 6.42 E/E' Med: 14.70 E/E' Lat: 11.10 PHT: 75.00 MVA PHT: 2.93 Decel [place]: 3.67 Aortic Valve AoV Pk Cornel: 1.61 AoV Pk Grad: 10.00 LVOT LVOT Pk Cornel: 1.06 LVOT Mn Cornel: 0.68 LVOT VTI: 0.22 LVOT Pk Grad: 4.00 LVOT Mn Grad: 2.00 LVOT Diam: 2.00 LVOT Area: 3.14 Diastolic Function MV Pk E: 0.94 MV Pk A: 0.64 E/A: 1.50 E'Medial: 6.42 E/E' Med: 14.70 E' Laterial: 8.49 E/E' Lat: 11.10 Tricuspid Valve TR Pk Cornel: 1.76 TR Pk Grad: 12.00 RA Press: 3.00 RVSP: 15.00 Great Vessels Aorta Ao Asc: 3.20 2.1-3.4 cm Updated in Other Vendor System with Status of Final Jose Swanson MD electronically signed on 08/06/2020 5:03:12 PM with status of Final
== END ==
LOC: HO.CARD 07:30
PROVIDERS: PCP Internal Medicine; Visit Provider Nurse Practitioner Family
DX: I31.3 Pericardial effusion (noninflammatory) (principal); Z95.1 Presence of aortocoronary bypass graft
CPT/HCPCS: 93306

== ENCOUNTER 2020-09-17 08:30 | Outpatient (REF) | payer OTHER, SELFPAY ==
[2020-09-17 10:08] LABS: Alanine Aminotransferase 29 U/L (0-31); Anion Gap 13 (12-20); Aspartate Amino Transferase 26 U/L (5-31); Blood Urea Nitrogen 12 mg/dL (9-16); Calcium 9.4 mg/dL (8.4-10.2); Carbon Dioxide 26 mmol/L (22-29); Chloride 106 mmol/L (96-108); Cholesterol 109 mg/dL; Estimated Glomerular Filt Rate > 60; Glucose Random 125 mg/dL (60-115); HDL Cholesterol 51 mg/dL; LDL Cholesterol Calculated 45 mg/dl; Magnesium 1.9 mg/dL (1.6-2.6); Sodium 141 mmol/L (135-145); Triglycerides 68 mg/dL
== END 2020-09-17 08:31 | disposition home or self-care (01) ==
LOC: HO.LAB 08:30
PROVIDERS: PCP Internal Medicine; Visit Provider Nurse Practitioner Family
DX: I25.10 Atherosclerotic heart disease of native coronary artery without angina pectoris (principal); I49.3 Ventricular premature depolarization; E78.5 Hyperlipidemia, unspecified
CPT/HCPCS: 36415; 80048; 80061; 83735; 84450; 84460

== ENCOUNTER → 2020-10-15 08:25 | Outpatient (REF) | payer OTHER, SELFPAY ==
--- NOTE | 2020-10-15 08:28 | CA_ITS ---
Transthoracic Echocardiogram Patient (Last, First, Middle): Ivett Townsend, Gender: Female Date of : 1965 Age: 54 Procedure Date: 10/15/2020 Procedure Type: Transthoracic Echocardiogram Location: OP Height: 165.1 cm Weight: 68.95 kg BSA: 1.76 m2 Heart Rate: bpm BP: 122 / 78 mmHg Stone Driller: CINDI Referring MD: Antonina Wilson SHEATHERThai Symptoms: I31.3 - Pericardial effusion (noninflammatory) Study Quality: Good ECG Rhythm: Sinus Conclusions: - The left ventricular systolic function is normal. The visually estimated ejection fraction is between 55-60%. - There is a small circumferential pericardial effusion. Findings Left Ventricle Normal left ventricular cavity size. The left ventricular systolic function is normal. The visually estimated ejection fraction is between 55-60%. There is no evidence of regional wall motion abnormalities. Pericardium/Pleural There is a small circumferential pericardial effusion. There are no definitive echocardiographic findings of tamponade physiology. Prior Study Comparison Changes noted compared to prior study dated: 08/05/2020. Decrease in size of effusion. Measurements 2D Linear Measurements LVIDd: 5.34 3.9-5.3/4.2-5.9 cm LVIDd Index: 3.03 2.4-3.2/2.2-3.1 cm/m2 LVIDs: 2.97 2.0-3.6 cm LVPWd: 0.79 0.7-1.1 cm 2D Systolic Function EF 4C: 58.50 >55% EF 2C: 58.50 >55% EF BiP: 56.40 >55% Mitral Valve MV Pk E: 0.71 MV PK A: 0.61 MV Decel Time: 346.00 E/A: 1.20 E'Lateral: 7.18 E'Medial: 6.64 E/E' Med: 10.70 E/E' Lat: 9.90 Diastolic Function MV Pk E: 0.71 MV Pk A: 0.61 E/A: 1.20 E'Medial: 6.64 E/E' Med: 10.70 E' Laterial: 7.18 E/E' Lat: 9.90 Right Ventricle TAPSE (mm): 24.00 TVS' Cornel: 10.70 Updated in Other Vendor System with Status of Final Jose Swanson MD electronically signed on 10/15/2020 4:02:47 PM with status of Final
== END ==
LOC: HO.CARD 08:25
PROVIDERS: PCP Internal Medicine; Visit Provider Nurse Practitioner Family
DX: I31.3 Pericardial effusion (noninflammatory) (principal); I42.8 Other cardiomyopathies; Z95.1 Presence of aortocoronary bypass graft
CPT/HCPCS: 93308

== ENCOUNTER → 2020-10-29 12:46 | Outpatient (BNVA) | payer OTHER, SELFPAY | PROVIDERS: PCP Internal Medicine; Visit Provider Internal Medicine ==

== ENCOUNTER → 2021-04-06 15:12 | Outpatient (REF) | payer OTHER, SELFPAY ==
--- NOTE | 2021-04-06 15:14 | CA_ITS ---
Transthoracic Echocardiogram Patient (Last, First, Middle): Ivett Townsend, Gender: Female Date of : 1965 Age: 55 Procedure Date: 04/06/2021 Procedure Type: Transthoracic Echocardiogram Location: OP Height: 165.1 cm Weight: 70.31 kg BSA: 1.78 m2 Heart Rate: bpm BP: 128 / 80 mmHg Semiconductor Packages Tester: Referring MD: Jose Swanson MD Security Risk Analyst: Mainor Jacobsen MD Symptoms: I31.3 - Pericardial effusion (noninflammatory) Study Quality: Fair ECG Rhythm: Sinus with extra beats Conclusions: - 1. Normal LV systolic and diastolic function 2. Normal cardiac valvular Doppler 3. Normal RV systolic pressure 4. Trivial pericardial effusion Findings Left Ventricle Normal left ventricular size, thickness, and systolic function. The visually estimated ejection fraction is between 60-65%. Spectral Doppler is indicative of a normal filling pattern. Right Ventricle Normal right ventricular cavity size and systolic function. Atria The left atrium is likely dilated. Interatrial shunt cannot be excluded. The right atrium is normal in size. Aortic Valve The aortic valve was not well visualized. There is no aortic valve stenosis. There is no aortic valve regurgitation. Mitral Valve Likely normal mitral valve structure and function. There is trace mitral valve regurgitation. There is no mitral valve stenosis. Pulmonic Valve The pulmonic valve was not well visualized. Tricuspid Valve Likely normal tricuspid valve structure and function. There is trace tricuspid valve regurgitation. The right ventricular systolic pressure is normal. There is no evidence of pulmonary hypertension. Great Vessels All visible segments of the aorta are normal in size. The pulmonary artery was not well visualized. Venous The inferior vena cava is normal in size and collapses greater than 50% with inspiration. Pericardium/Pleural Widened pericardial space, unable to distinguish between adipose tissue and effusion. There is a trivial loculated pericardial effusion overlying the left ventricle. Prior Study Comparison Changes noted compared to prior study dated: 10/15/2020. Pericardial effusion is not as prominent Measurements 2D Linear Measurements IVSd: 1.18 0.6-0.9/0.6-1.0 cm LVIDd: 4.47 3.9-5.3/4.2-5.9 cm LVIDd Index: 2.51 2.4-3.2/2.2-3.1 cm/m2 LVIDs: 2.73 2.0-3.6 cm LVPWd: 1.16 0.7-1.1 cm Ao Root: 2.90 2.1-3.5 cm LA Diam: 3.90 2.7-3.8/3.0-4.0 cm LAIDs Index: 2.19 1.5-2.3 cm/m2 LV Mass: 235.57 67-162/88-224 g LV Mass Index: 132.34 43-95/49-115 g/m2 LVOT Diam: 2.20 3.0+(-)1.3 cm 2D Systolic Function EF 4C: 66.30 >55% EF 2C: 57.70 >55% EF BiP: 62.60 >55% Mitral Valve MV Pk E: 0.84 MV PK A: 0.69 MV Decel Time: 324.00 E/A: 1.20 E'Lateral: 12.60 E'Medial: 7.94 E/E' Med: 10.50 E/E' Lat: 6.60 PHT: 95.00 MVA PHT: 2.32 Decel [place]: 2.58 Aortic Valve AoV Pk Cornel: 1.57 AoV Mn Cornel: 1.08 AoV VTI: 0.35 AoV Pk Grad: 10.00 Aov Mn Grad: 5.00 SONU Cont.VTI: 2.49 LVOT LVOT Pk Cornel: 0.92 LVOT Mn Cornel: 0.61 LVOT VTI: 0.23 LVOT Pk Grad: 3.00 LVOT Mn Grad: 2.00 LVOT Diam: 2.20 LVOT Area: 3.80 Diastolic Function MV Pk E: 0.84 MV Pk A: 0.69 E/A: 1.20 E'Medial: 7.94 E/E' Med: 10.50 E' Laterial: 12.60 E/E' Lat: 6.60 Right Ventricle TAPSE (mm): 18.00 TVS' Cornel: 12.00 Tricuspid Valve TR Pk Cornel: 1.96 TR Pk Grad: 15.00 RA Press: 3.00 RVSP: 18.00 Great Vessels Aorta Ao Root-2D: 2.90 2.0-3.7 cm Ao Asc: 3.10 2.1-3.4 cm Pulmonary Valve PV Pk Cornel: 1.13 Peak PV Grad: 5.00 Updated in Other Vendor System with Status of Final Mainor Jacobsen MD electronically signed on 04/07/2021 11:49:54 AM with status of Final
== END ==
LOC: HO.CARD 15:12
PROVIDERS: PCP Internal Medicine; Visit Provider Internal Medicine
DX: I31.3 Pericardial effusion (noninflammatory) (principal)
CPT/HCPCS: 93306

== ENCOUNTER → 2021-05-12 15:11 | Outpatient (BNVA) | payer OTHER, SELFPAY | PROVIDERS: PCP Internal Medicine; Referring Provider Internal Medicine; Visit Provider Internal Medicine ==

== ENCOUNTER → 2022-05-13 15:02 | Outpatient (BNVA) | payer OTHER, SELFPAY | PROVIDERS: PCP Internal Medicine; Visit Provider Internal Medicine | DX: I25.10 Atherosclerotic heart disease of native coronary artery without angina pectoris (principal); I25.5 Ischemic cardiomyopathy; E11.8 Type 2 diabetes mellitus with unspecified complications | CPT/HCPCS: 93005 ==

== ENCOUNTER 2023-05-16 15:07 | Outpatient (AMB) | payer OTHER, SELFPAY ==
[2023-05-16 15:13] VITALS: BP 110/68; PULSE 62; BMI 26.4
--- NOTE | 2023-05-16 15:13 | MHC.OFFVIS ---
Intake Vital Signs 05/16/23 15:13 Height 5 ft 5 in Weight 158 lb 11.725 oz BMI 26.4 BP 110/68 Blood Pressure Location Lt brachial Position Sitting Pulse 62 Intake Visit Reasons: 1 yr f/u Intake Note: 1 year follow up Behavioral Sciences Instructor Required: No Accompanied by: Self / Same As Patient Allergies codeine Adverse Reaction (Unknown, Verified 05/16/23 15:14) weird dreams metformin Adverse Reaction (Unknown, Verified 05/16/23 15:14) leg cramping Medication List - Last Reconciled 05/16/23 by Jose Swanson MD aspirin 81 mg PO DAILY atorvastatin 80 mg PO BEDTIME empagliflozin (Jardiance) 10 mg PO DAILY losartan 25 mg PO DAILY HPI HPI Comments History of Present Illness Details Ivett returns for follow-up regarding coronary disease. In 2020, she had hospitalization for NSTEMI. Subsequently, underwent cardiac catheterization which showed complex LAD/diagonal stenosis as well as circumflex stenosis. Then underwent bypass surgery. Since last seen, no specific complaints and states she is doing well. [facility] Medical History CAD (coronary artery disease) DM (diabetes mellitus) Essential hypertension HTN (hypertension) Hyperlipidemia HUDSON (nonalcoholic steatohepatitis) Type 2 diabetes mellitus with unspecified complications Surgical History S/P cardiac catheterization S/P CABG x 3 Family History Father No problems noted. Mother No problems noted. Social History Alcohol intake: never Patient Tobacco Use Status: Never used Tobacco Review of Systems Const All systems reviewed & are unremarkable except as noted in HPI and below Reports as per HPI and Reports no additional complaints Eyes Reports as per HPI and Denies no additional complaints ENT Denies no additional complaints and Reports as per HPI Card Reports as per HPI, Reports no additional complaints, Denies acrocyanosis, Denies chest pain, Denies leg edema, Denies lightheadedness, Denies palpitations and Denies dyspnea Resp Reports as per HPI, Denies no additional complaints and Denies dyspnea GI Reports as per HPI and Denies no additional complaints Reports as per HPI Musc Reports no additional complaints and Reports as per HPI Skin/Breast Reports system reviewed and no additional complaints, except as documented Neuro Reports no additional complaints and Reports as per HPI Psych Reports no additional complaints and Reports as per HPI Endo Reports no additional complaints, Reports as per HPI and Denies palpitations Leroy/Lymph Reports no additional complaints and Reports as per HPI Aller/Immun Reports no additional complaints and Reports as per HPI Physical Exam Vital Signs: Last Vital Signs Pulse 62 05/16/23 15:13 BP 110/68 05/16/23 15:13 BMI result Body Mass Index 26.4 Const General: comfortable and no acute distress Orientation/consciousness: patient oriented x3 HEENT Other: Unremarkable Head: Yes normal to inspection Neck Neck: Yes normal visual inspection Chest Chest palpation & inspection: normal inspection of the chest Resp Auscultation: clear to auscultation bilaterally Cardio Palpation: normal PMI Heart sounds: S1 normal heart sound present, S2 normal heart sound present, no gallops, no murmurs and no rubs GI Palpation (GI): Soft to palpation Back/Spine/Pelvis Other: unremarkable Skin General skin exam: no rashes or lesions noted Neuro General: patient oriented x3 Extrem General: Yes normal to inspection Psych Mental Status: mental status grossly normal Office Procedures EKG Details: EKG with sinus rhythm at 62/Min; can not exclude old anterior infarct; T inversion aVL; [place] [id number], Complete Assessment & Plan Assessment & Plan (1) Atherosclerotic cardiovascular disease: Code(s): I25.10 - Atherosclerotic heart disease of [place] coronary artery without angina pectoris Plan: Status post coronary artery bypass surgery May 2020. Continue aspirin, statins. LDL cholesterol 45 mg/dL. Will get more recent labs from PCP. (2) Ischemic cardiomyopathy: Code(s): I25.5 - Ischemic cardiomyopathy Plan: Initial LVEF 25-30%. Normalized. (3) Type 2 diabetes mellitus with unspecified complications: Code(s): E11.8 - Type 2 diabetes mellitus with unspecified complications Plan: On Jardiance. No recent hemoglobin A1c in our system. Will need to get PCP labs. Coding Level of Care Code Est Pt Level 3 (59434) Diagnoses Atherosclerotic cardiovascular disease I25.10 Ischemic cardiomyopathy I25.5 Type 2 diabetes mellitus with unspecified complications E11.8 CPT Codes EKG - CPT: 44232-[id number], Complete ([id number])
== END 2023-05-16 15:28 | disposition home or self-care (01) ==
PROVIDERS: Visit Provider Internal Medicine
DX: I25.10 Atherosclerotic heart disease of native coronary artery without angina pectoris (principal); I25.5 Ischemic cardiomyopathy; E11.8 Type 2 diabetes mellitus with unspecified complications
CPT/HCPCS: 93010; 99213

== ENCOUNTER → 2023-05-16 15:07 | Outpatient (BNVA) | payer OTHER, SELFPAY | PROVIDERS: Visit Provider Internal Medicine | DX: I25.10 Atherosclerotic heart disease of native coronary artery without angina pectoris (principal); I25.5 Ischemic cardiomyopathy; E11.8 Type 2 diabetes mellitus with unspecified complications; Z79.82 Long term (current) use of aspirin; Z79.899 Other long term (current) drug therapy | CPT/HCPCS: 93005 ==

== ENCOUNTER 2024-05-24 14:54 | Outpatient (AMB) | payer BC, SELFPAY ==
[2024-05-24 15:07] VITALS: BP 104/60; PULSE 62; BMI 26.1
--- NOTE | 2024-05-24 15:07 | MHC.OFFVIS ---
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 In 2020, she had hospitalization for NSTEMI. Subsequently, underwent cardiac catheterization which showed complex LAD/diagonal stenosis as well as circumflex stenosis. Then underwent bypass surgery. Overall, she states she feels good. Has been fairly active without any major limitations. [facility] Medical History CAD (coronary artery disease) DM (diabetes mellitus) Essential hypertension HTN (hypertension) Hyperlipidemia HUDSON (nonalcoholic steatohepatitis) Type 2 diabetes mellitus with unspecified complications Surgical History S/P cardiac catheterization S/P CABG x 3 Family History Father No problems noted. Mother No problems noted. Social History Alcohol intake: never Patient Tobacco Use Status: Never used Tobacco Review of Systems Const Denies chills, Denies fatigue, Denies fever(s), Denies weight gain and Denies weight loss ENT Denies dizziness Card Denies chest pain, Denies leg edema, Denies lightheadedness, Denies palpitations, Denies dyspnea on exertion, Denies orthopnea and Denies other Resp Denies cough and Denies dyspnea on exertion GI Denies hematochezia and Denies change in stool character Musc Denies abnormal gait, Denies muscle weakness, Denies numbness, Denies radiating pain into limb and Denies tingling Neuro Denies abnormal gait, Denies dizziness, Denies numbness and Denies tingling Endo Denies fatigue and Denies palpitations Physical Exam Vital Signs: Last Vital Signs Pulse 62 05/24/24 15:07 BP 104/60 05/24/24 15:07 BMI result Body Mass Index 26.1 Const General: comfortable and no acute distress Orientation/consciousness: patient oriented x3 HEENT Other: Unremarkable Head: Yes normal to inspection Neck Neck: Yes normal visual inspection Chest Chest palpation & inspection: normal inspection of the chest Resp Auscultation: clear to auscultation bilaterally Cardio Palpation: normal PMI Heart sounds: S1 normal heart sound present, S2 normal heart sound present, no gallops, no murmurs and no rubs GI Palpation (GI): Soft to palpation Back/Spine/Pelvis Other: unremarkable Skin General skin exam: no rashes or lesions noted Neuro General: patient oriented x3 Extrem General: Yes normal to inspection Psych Mental Status: mental status grossly normal Office Procedures EKG Details: EKG with underlying sinus rhythm at 62/Min; rightward axis; cannot exclude old anterior infarct; [place]. [id number], Complete Assessment & Plan Assessment & Plan (1) Atherosclerotic cardiovascular disease: Code(s): I25.10 - Atherosclerotic heart disease of [place] coronary artery without angina pectoris Category: Medical Plan: Status post coronary artery bypass surgery 2020. Continue aspirin, statins. Available cholesterol levels are well within range. (2) Ischemic cardiomyopathy: Code(s): I25.5 - Ischemic cardiomyopathy Category: Medical Plan: Initial LVEF 25-30%. Normalized. (3) Type 2 diabetes mellitus with unspecified complications: Code(s): E11.8 - Type 2 diabetes mellitus with unspecified complications Category: Medical Plan: On Jardiance. Last available hemoglobin A1c is 7.6%. Coding Level of Care Code Est Pt Level 4 (79056) Complex EM visit Add On G2211 Diagnoses Atherosclerotic cardiovascular disease I25.10 Ischemic cardiomyopathy I25.5 Type 2 diabetes mellitus with unspecified complications E11.8 CPT Codes EKG - CPT: 54756-[id number], Complete ([id number])
--- OUTSIDE RECORDS SUMMARY | 2024-05-24 18:39 | XMS_ITS | Clinical Summary ---
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 Lisinopril Other 06/18/2009 cough Metformin Hcl Weakness 01/23/2007 Metformin Hcl [metformin Hcl-saccharin Calcium] Muscle cramps Other Hives High 12/23/2022 Medications glucose blood test strip Use as instructed 100 each 11 4 02/02/20 25 Active EpiPen 2-Morgan 0.3 mg/0.3 mL injection Inject 0.3 mg into the muscle as needed for Other (anaphylactic reaction). 2-pack. Fill with whichever brand is covered by insurance. 4 Active blood-glucose meter misc 1 Units by Does not apply route daily as needed for Other (glucose monitoring). 4 Active lancets 33 gauge misc 1 (one) time each day. Onetouch Delica Use to test blood sugar daily. 100 each 3 4 Active estradioL (ESTRACE) 0.01 % (0.1 mg/gram) vaginal cream Apply 0.5 g (a pea sized amount) to the vaginal opening with your finger fnightly or two weeks, then MWF thereafter. 42.5 g 1 5 Active aspirin 81 mg EC tablet Take 1 tablet (81 mg total) by mouth 1 (one) time each day. 90 each 3 5 04/19/19 26 Active atorvastatin (LIPITOR) 80 mg tablet Take 1 tablet (80 mg total) by mouth 1 (one) time each day. 90 each 3 5 04/19/19 26 Active empagliflozin (JARDIANCE) 25 mg tabletIndicatio ns:Type 2 diabetes mellitus without complication, without long-term current use of insulin ([facility]) Take 1 tablet (25 mg total) by mouth 1 (one) time each day in the morning. 90 tablet 3 5 04/19/19 26 Active losartan (COZAAR) 25 mg tablet Take 1 tablet (25 mg total) by mouth 1 (one) time each day. 90 tablet 1 5 Active Active Problems Problem Noted Date Diagnosed Date Pericardial effusion (noninflammatory) Overview (02/13/2024): Followed by [facility] cardio - Dr. 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 Molina. NSTEMI (non-ST elevated myocardial infarction) 0 06/20/2020 Ischemic cardiomyopathy 06/20/2020 Overview (02/13/2024): EF 20-30% Assessment & Plan (04/19/2024 3:14 PM EST): No chest pain, shortness of breath, palpitations at this time. On atorvastatin, Jardiance, aspirin. Continue same medications. Type 2 diabetes mellitus without complication Assessment & Plan (04/19/2024 3:14 PM EST): Fair control of diabetes. Patient will continue with yearly Podiatric and Ophthomologic evaluations.Will continue Angiotensin Converting Enzyme Inhibitor for renal protection. Continue Jardiance 25 mg. We discussed about dietary compliance. Will continue same medication for now. We will check a hemoglobin A1c, before her next visit. Patient will follow up in 3 to 4 months Orders: empagliflozin (JARDIANCE) 25 mg tablet; Take 1 tablet (25 mg total) by mouth 1 (one) time each day in the morning. Hemoglobin A1c; Future Lyme disease 08/14/2019 Irregular uterine bleeding 08/04/2017 Overview (02/13/2024): Last Assessment & Plan: I recommended that due to her intermittent bleeding, possibly intermenstrual spotting, we perform a pelvic US to ensure no evidence of intracavitary pathology. Can also re-evaluate her fibroids at that time. She understood and agreed. Bleeding pattern is very likely related to perimenopausal transition. 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 I have instructed the patient on the principles of a low cholesterol diet and the importance of regular exercise. Herpes simplex virus (HSV) infection 10/13/2006 Overview (02/13/2024): IMO update Essential hypertension 10/11/2006 Assessment & Plan (04/19/2024 3:14 PM EST): The patient's antihypertensive regimen is based on their underlying medical issues. At the time of this visit, the blood pressure is well controlled on losartan. The patient is instructed to follow a low sodium diet and to follow up in 4 months. Encounters Date Type Department Care Team Description 04/19/2024 2:30 PM EST Office Visit [facility] [address] [phone] Brooklyn Bee MD Type 2 diabetes mellitus without complication, without long-term current use of insulin (CMS/HCC) (Primary Dx); Essential hypertension; Mixed hyperlipidemia; Ischemic cardiomyopathy; Skin lesion; Encounter for screening involving social determinants of health (SDoH); Screening for depression 03/22/2024 9:20 AM EST Office Visit Obstetrics and Gynecology - [address] [phone] Arabella Marquez, PA Acute vaginitis (Primary Dx); Atrophic vaginitis 02/24/2024 3:15 PM EST Office Visit Obstetrics and [facility]cology - [facility] [address] [place] [phone] Rahel Pope, CNM Vaginal yeast infection (Primary Dx); Atrophic vaginitis from Last 3 Months Immunizations Name Administration Dates Next Due Influenza Quadravalent, MDCK , 0.5ml, preservative free (Flucelvax) 6mo and older 12/30/2020 Pneumococcal polysaccharide 23 valent (Pneumovax 23) 2yo and older 05/09/2013 Td Tetanus diptheria (Tdvax) 7yo and older 09/27,03/14/1989 Tdap Tetanus diptheria acell ular pertussis (Boostrix; Adacel) 7yo and older 10/11/2006 Surgical History Surgery Date Site/Laterality Comments SECTION PROCEDURE: HISTORICAL APPENDECTOMY PROCEDURE: HISTORICAL APPENDECTOMY CORONARY ARTERY BYPASS GRAFT 06/09/2020 PROCEDURE: HISTORICAL CABG; COMMENT: x3 Medical History Medical History Date Comments Unspecified disorder of thyroid DX:Unspecified disorder of thyroid Fibroids DX:Fibroids; COM MENT: dysmenorrhea Hyperlipidemia 01/23/2007 DX:Hyperlipidemi a; COMMENT: no medication Hypothyroidism 06/07/2011 DX:Hypothyroidis m Prediabetes DX:Prediabetes Pericardial effusion (noninflammatory) DX:Pericardial effusion (noninflammatory); COMMENT: Followed by [facility] cardio - Dr. Sky Garcia Family History Medical History Relation Name Comments No Known Problems Brother 1 Imtiaz No Known Problems Brother 2 Semaj unknown ca use Coronary artery disease Father Diabetes Father renal complicat ions Glaucoma Father Hypertension Father No Known Problems Maternal Grandfather No Known Problems Maternal Grandmother Hyperlipidemia Mother No Known Problems Paternal Grandfather No Known Problems Paternal Grandmother No Known Problems Son Bartolome Breast cancer Neg Hx Colon cancer Neg Hx Ovarian cancer Neg Hx Pancreatic cancer Neg Hx Prostate cancer Neg Hx Strabismus Neg Hx Uterine cancer Neg Hx Relation Name Status Comments Brother 1 Imtiaz Alive 1959 Brother 2 Semaj 1962 Father (Age 78) Maternal Grandfather Maternal Grandmother Mother (Age 85) Paternal Grandfather Paternal Grandmother Son Bartolome Alive 1991; [employer] p reviously Social History Tobacco Use Types Packs/Day Years Used Date Smoking Tobacco: Never Smokeless Tobacco: Never Tobacco Cessation:Counseling Given: Not Answered Alcohol Use Standard Drinks/Week Comments Yes 0 (1 standard drink = 0.6 oz pur e alcohol) Housing Instability Answer Date Recorde d Are you worried that in the next 2 months you may not have stable housing? Yes 04/19/2024 Food Access & Nutrition Answer Date Rec orded Do you have access to a vari ety of food including fruits and vegetables? No 04/19/2024 Access to Healthcare Answer Date Record ed Within the last 3 months, ho w many times did you visit the emergency department for your medical care? 0 04/19/2024 Health Literacy Answer Date Recorded How often do you need to hav e someone help you when you read instructions, pamphlets, or other written material from your doctor or pharmacy? Never 04/19/2024 Caregiver: How often do you need to have someone help you when you read instructions, pamphlets, or other written material from your doctor or pharmacy? Not on file 04/19/2024 Financial Risk Answer Date Recorded How hard is it for you to pa y for the very basics like food, housing, medical care, and air conditioning / heating? Not very hard 04/19/2024 Transportation Answer Date Recorded Has the lack of transportati on kept you from meetings, work, or from getting things needed for daily living? No Has the lack of transportati on kept you from medical appointments or from getting medications? No 04/19/2024 Social Isolation Answer Date Recorded How often do you feel lonely or isolated from th ose around you? Never 04/19/2024 Food Risk Answer Date Recorded Within the past 12 months we worried whether our food would run out before we got money to buy more. Never true 04/19/2024 Within the past 12 months th e food we bought just didn't last and we didn't have money to get more. Never true 04/19/2024 Dependent Care Answer Date Recorded Do you need help finding or paying for care for your loved ones. For example, early childhood education instructor or elderly care for an older adult? No 04/19/2024 Education Answer Date Recorded Do you think completing more education or training, like finishing a GED, going to college, or learning a trade, would be helpful for you? No 04/19/2024 Employment and Income Answer Date Recor ded During the last four weeks, have you been actively looking for work? No 04/19/2024 Living Situation Answer Date Recorded What is your living situation? 0 04/19/2024 Comments No Sex and Gender Information Value Date Recorded Sex Assigned at Female 01/18/2024 11:56 AM EST Legal Sex Female 4:14 AM EST Gender Identity Female 01/18/2024 11:56 AM EST Sexual Orientation Choose not to disclose 2023 11:56 AM EST Obstetrics History Para Term AB IAB SAB Ectopic Multiple Livin g Live Births 1 1 1 1 1 Date Outcome GA Total Labor Labor/2nd/3rd Weight Sex Type Anes PTL Sharmin A1 A5 Name Clin Term Living Last Filed Vital Signs Vital Sign Reading Time Taken Comments Blood Pressure 110/62 04/19/2024 2:11 PM EST Pulse 64 04/19/2024 2:11 PM EST Temperature 36.2 ??C (97.1 ??F) 04/19/2024 2:11 PM ES T Respiratory Rate 16 04/19/2024 2:11 PM EST Oxygen Saturation - - Inhaled Oxygen Concentration - - Weight 70.8 kg (156 lb) 04/19/2024 2:11 PM EST Height 165.1 cm (5' 5 ) 12/27/2023 3:03 PM EDT Body Mass Index 25.96 12/27/2023 3:03 PM EDT Plan of Treatment Upcoming Encounters Date Type Department Care Team (Late st Contact Info) Description 07/09/2024 3:30 PM EDT Office Visit Obstetrics and Gynecology - [address] [phone] Pam Edwards CNM [address] [place] [phone] 07/18/2024 8:30 AM EDT Office Visit [facility] - [address] [phone] Brooklyn Bee MD [address] [place] [address] 09/24/2024 4:00 PM EDT Appointment Radiology Department - [address] [phone] Health Maintenance Due Date Last Done Comments Hepatitis B Vaccines (1 of 3 - 19+ 3-dose series) 1984 Zoster Vaccines (1 of 2) 1984 Pneumococcal Vaccine: 50+ Years (2 of 2 - PCV) 05/09/2014 05/09/2013 Pneumococcal Vaccine: Pediatrics (0 to 5 Years) and At-Risk Patients (6 to 64 Years) (2 of 2 - PCV) 05/09/2014 05/09/2013 HIV Screening 02/20/2022 COVID-19 Vaccine ( season) 2023 03/25/2021, 07/26/2020, 06/28/2020 Diabetes: Annual Retina Eye Exam 03/03/2024 03/03/2023 Diabetes: Blood Sugar Control Test (HGBA1C) 10/16/2024 04/18/2024, 10/24/2023, 10/24/2023 Colorectal Cancer Screening: Stool Based Tests (FOBT/FIT) 11/21/2024 11/22/2023 Diabetes: Annual Foot Exam 12/26/2024 12/27/2023 Breast Cancer Screening 12/29/2024 12/30/19 23, 12/24/2021, 12/17/2020, Additional history exists Diabetes: Annual Urine Albumin-Creatinine Ratio (uACR) 04/18/2025 04/18/2024, 10/24/2023 Diabetes: Annual GFR (Glomerular Filtration Rate) 04/18/2025 04/18/2024, 10/24/2023, 10/24/2023 Hypertension/CHF/CAD Annual BMP Blood Test 04/18/2025 04/18/2024, 10/24/2023, 10/24/2023 Depression Screening 04/19/2025 04/19/2024 Social Influencers of Health Screening 04/19/2025 04/19/2024 DTaP,Tdap,and Td Vaccines (4 - Td or Tdap) 09/28/2027 09/27/2017, 10/11/2006, 03/14/1989 Cervical Cancer Screening: HPV 11/18/2027 11/17/2022 Cholesterol Screening (Lipid Panel) 04/18/2029 04/18/2024, 10/24/2023, 10/24/2023 Influenza Vaccine Discontinued 12/30/2020 Hepatitis C Screening Completed 10/19/2021 Colorectal Cancer Screening: FIT-DNA (Cologuard) Discontinued 11/03/2023 HIB Vaccines Aged Out No longer eligi ble based on patient's age to complete this topic HPV Vaccines Aged Out No longer eligi ble based on patient's age to complete this topic Hepatitis A Vaccines Aged Out No long er eligible based on patient's age to complete this topic IPV Vaccines Aged Out No longer eligi ble based on patient's age to complete this topic MMR Vaccines Aged Out No longer eligi ble based on patient's age to complete this topic Meningococcal ACWY Vaccine Aged Out N o longer eligible based on patient's age to complete this topic Meningococcal B Vacine Aged Out No lo nger eligible based on patient's age to complete this topic RSV Immunization Patients Under 20 months Aged Out No longer eligible based on patient's age to complete this topic Varicella Vaccines Aged Out No longer eligible based on patient's age to complete this topic Procedures Procedure Name Priority Date/Time Associated Diagnosis Comments CBC WITH AUTO DIFFERENTIAL Routine 04/18/2024 8:57 AM EST Essential hypertension 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, unspecified whether angina present Hyperlipidemia, unspecified hyperlipidemia type Type 2 diabetes mellitus without complication, unspecified whether 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 (CMS/HCC) Lyme disease Herpes simplex virus (HSV) infection Angiomyolipoma of left kidney Pericardial effusion (noninflammatory) Ischemic cardiomyopathy THYROID STIMULATING HORMONE WITH REFLEX TO FREE T4 AND FREE T3 Routine 04/18/2024 8:57 AM EST Essential hypertension 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, unspecified whether angina present Hyperlipidemia, unspecified hyperlipidemia type Type 2 diabetes mellitus without complication, unspecified whether 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 (CMS/HCC) Lyme disease Herpes simplex virus (HSV) infection Angiomyolipoma of left kidney Pericardial effusion (noninflammatory) Ischemic cardiomyopathy CBC AND DIFFERENTIAL Routine 04/18/2024 8:57 AM EST Essential hypertension 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, unspecified whether angina present Hyperlipidemia, unspecified hyperlipidemia type Type 2 diabetes mellitus without complication, unspecified whether long-term insulin use (CMS/HCC) Lyme disease Herpes simplex virus (HSV) infection Angiomyolipoma of left kidney Pericardial effusion (noninflammatory) Ischemic cardiomyopathy HEMOGLOBIN A1C Routine 04/18/2024 8:57 AM EST Essential hypertension 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, unspecified whether angina present Hyperlipidemia, unspecified hyperlipidemia type Type 2 diabetes mellitus without complication, unspecified whether long-term insulin use (CMS/HCC) Lyme disease Herpes simplex virus (HSV) infection Angiomyolipoma of left kidney Pericardial effusion (noninflammatory) Ischemic cardiomyopathy MICROALBUMIN CREATININE URINE RATIO Routine 04/18/2024 8:57 AM EST Essential hypertension 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, unspecified whether angina present Hyperlipidemia, unspecified hyperlipidemia type Type 2 diabetes mellitus without complication, unspecified whether 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 (CMS/HCC) Lyme disease Herpes simplex virus (HSV) infection Angiomyolipoma of left kidney Pericardial effusion (noninflammatory) Ischemic cardiomyopathy LIPID PANEL WITH REFLEX TO DIRECT LDL Routine 04/18/2024 8:57 AM EST Essential hypertension 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, unspecified whether angina present Hyperlipidemia, unspecified hyperlipidemia type Type 2 diabetes mellitus without complication, unspecified whether 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 (CMS/HCC) Lyme disease Herpes simplex virus (HSV) infection Angiomyolipoma of left kidney Pericardial effusion (noninflammatory) Ischemic cardiomyopathy COMPREHENSIVE METABOLIC PANEL Routine 04/18/2024 8:57 AM EST Essential hypertension 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, unspecified whether angina present Hyperlipidemia, unspecified hyperlipidemia type Type 2 diabetes mellitus without complication, unspecified whether 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 (CMS/HCC) Lyme disease Herpes simplex virus (HSV) infection Angiomyolipoma of left kidney Pericardial effusion (noninflammatory) Ischemic cardiomyopathy TRICHOMONAS VAGINALIS ANTIGEN Routine 02/24/2024 3:40 PM EST Vaginal yeast infection WET PREP, GENITAL Routine 02/24/2024 3:4 0 PM EST Vaginal yeast infection HM DIABETES FOOT EXAM Routine 12/27/2023 HM STOOL BASED TEST Routine 11/22/2023 HM DIABETES EYE EXAM Routine 03/03/2023 SCREENING MAMMOGRAPHY BI 2-VIEW BREAST INC CAD Routine 12/29/2022 5:11 PM EDT Encounter for screening mammogram for malignant neoplasm of breast HM HPV Routine 11/17/2022 HEPATITIS C SCREENING Routine 10/19/2021 from Last 3 Months or Most Recently Relevant to Health Maintenance Results * Thyroid stimulating hormone with reflex to free t4 and free t3 (04/18/2024 8:57 AM EST) Pathologist [facility] [place] TSH 2.80 0.40 - 4.00 mcIU/mL LAB CHEMISTRY METHOD 04/18/2024 2:49 PM EST [facility] Blood Venous blood specimen / Unknown Venipuncture / Unknown 04/18/2024 8:57 AM EST 04/18/2024 8:57 AM EST us Danelle ROLON LAB BLOOD ORDERABLES Final Resu lt [facility]) [facility] [address] [place] [address], [place] [phone] * Lipid panel with reflex to direct LDL (04/18/2024 8:57 AM EST) Pathologist [facility] [place] Cholesterol 145 0 - 200 mg/dL LAB CHEMISTRY METHOD 04/18/2024 2:57 PM EST [facility] Triglycerides 88 0 - 150 mg/dL LAB CHEMISTRY METHOD 04/18/2024 2:57 PM [facility] HDL 72 >=40 mg/dL LAB CHEMISTRY METHOD 04/18/2024 2:57 PM [facility] LDL Calculated 55 0 - 100 mg/dL LAB CHEMISTRY METHOD 04/18/2024 2:57 PM [facility] VLDL Cholesterol Abel 17.6 mg/dL LAB CHEMISTRY METHOD 04/18/2024 2:57 PM [facility] Non HDL Chol. (LDL+VLDL) 73 <145 mg/dL LAB CHEMISTRY METHOD 04/18/2024 2:57 PM [facility] Chol/HDL Ratio 2.0 0.0 - 4.4 LAB CHEMISTRY METHOD 04/18/2024 2:57 PM [facility] Blood Venous blood specimen / Unknown Venipuncture / Unknown 04/18/2024 8:57 AM EST 04/18/2024 8:57 AM EST Danelle ROLON LAB BLOOD ORDERABLES Final Resu lt [facility] [address] [place] [address], * (ABNORMAL) CBC auto differential (04/18/2024 8:57 AM EST) WBC 4.0(L) 4.8 - 10.8 K/mcL LAB HEMETOLOGY METHOD 04/18/2024 10:33 AM [facility] RBC 4.70 3.80 - 4.80 M/mcL LAB HEMETOLOGY METHOD 04/18/2024 10:33 AM [facility] Hemoglobin 14.2 11.5 - 16.0 g/dL LAB HEMETOLOGY METHOD 04/18/2024 10:33 AM [facility] Hematocrit 43.0 35.0 - 47.0 % LAB HEMETOLOGY METHOD 04/18/2024 10:33 AM [facility] MCV 92.3 79.0 - 98.0 FL LAB HEMETOLOGY METHOD 04/18/2024 10:33 AM [facility] MCH 30.5 27.0 - 32.0 pcg LAB HEMETOLOGY METHOD 04/18/2024 10:33 AM [facility] MCHC 33.0 32.0 - 37.0 g/dL LAB HEMETOLOGY METHOD 04/18/2024 10:33 AM [facility] RDW 11.8 11.0 - 15.0 % LAB HEMETOLOGY METHOD 04/18/2024 10:33 AM [facility] Platelets 178 130 - 400 K/mcL LAB HEMETOLOGY METHOD 04/18/2024 10:33 AM [facility] MPV 9.9 7.0 - 11.0 FL LAB HEMETOLOGY METHOD 04/18/2024 10:33 AM [facility] NRBC 0.0 <1.0 % LAB HEMETOLOGY METHOD 04/18/2024 10:33 AM [facility] NRBC Absolute 0.00 <0.10 K/mcL LAB HEMETOLOGY METHOD 04/18/2024 10:33 AM [facility] Neutrophils Relative 59.0 % LAB HEMETOLOGY METHOD 04/18/2024 10:33 AM [facility] Lymphocytes Relative 28.2 % LAB HEMETOLOGY METHOD 04/18/2024 10:33 AM [facility] Monocytes Relative 10.2 % LAB HEMETOLOGY METHOD 04/18/2024 10:33 AM [facility] Eosinophils Relative 1.7 % LAB HEMETOLOGY METHOD 04/18/2024 10:33 AM EST [facility] Basophils Relative 0.7 % LAB HEMETOLOGY METHOD 04/18/2024 10:33 AM [facility] Immature Granulocytes Relative 0.2 % LAB HEMETOLOGY METHOD 04/18/2024 10:33 AM [facility] Neutrophils Absolute 2.36 1.50 - 7.00 K/mcL LAB HEMETOLOGY METHOD 04/18/2024 10:33 AM [facility] Lymphocytes Absolute 1.13 1.00 - 5.00 K/mcL LAB HEMETOLOGY METHOD 04/18/2024 10:33 AM [facility] Monocytes Absolute 0.41 0.20 - 1.00 K/mcL LAB HEMETOLOGY METHOD 04/18/2024 10:33 AM [facility] Eosinophils Absolute 0.07 0.00 - 0.50 K/mcL LAB HEMETOLOGY METHOD 04/18/2024 10:33 AM EST [facility] Basophils Absolute 0.03 0.00 - 0.20 K/mcL LAB HEMETOLOGY METHOD 04/18/2024 10:33 AM [facility] Immature Granulocytes Absolute 0.01 0.00 - 0.03 K/mcL LAB HEMETOLOGY METHOD 04/18/2024 10:33 AM [facility] Blood Venous blood specimen / Unknown Venipuncture / Unknown 04/18/2024 8:57 AM EST 04/18/2024 8:57 AM EST us Danelle ROLON LAB BLOOD ORDERABLES Final Resu lt [facility] [address] [place] [address], * Microalbumin creatinine urine ratio (04/18/2024 8:57 AM EST) Creatinine, Urine 78.0 mg/dL LAB CHEMISTRY METHOD 04/18/2024 5:39 PM [facility] Microalb, Ur 7.1 0.0 - 29.0 mg/L LAB CHEMISTRY METHOD 04/18/2024 5:39 PM [facility] Microalb/Creat Ratio 9 <30 mg/g creat LAB CHEMISTRY METHOD 04/18/2024 5:39 PM [facility] Urine Urine specimen obtained by clean catch procedure / Unknown Non-blood Collection / Unknown 04/18/2024 8:57 AM EST 04/18/2024 8:57 AM EST Danelle ROLON LAB URINE ORDERABLES Final Resu lt Performing Organization Address [facility]/ZIP Co de Phone Number [facility] [address] [place] [address], [place] [phone] * (ABNORMAL) Hemoglobin A1c (04/18/2024 8:57 AM EST) Hemoglobin A1C 7.9(H) <6.5 % LAB CHEMISTRY METHOD 04/18/2024 7:02 PM [facility] Mean Bld Glu Estim. 180 mg/dL LAB CHEMISTRY METHOD 04/18/2024 7:02 PM [facility] Blood Venous blood specimen / Unknown Venipuncture / Unknown 04/18/2024 8:57 AM EST 04/18/2024 8:57 AM EST Danelle ROLON LAB BLOOD ORDERABLES Final Resu lt [facility] [address] [place] [address], [place] [phone] * (ABNORMAL) Comprehensive metabolic panel (04/18/2024 8:57 AM EST) Sodium 137 133 - 145 mmol/L LAB CHEMISTRY METHOD 04/18/2024 2:57 PM [facility] Potassium 4.3 3.5 - 5.5 mmol/L LAB CHEMISTRY METHOD 04/18/2024 2:57 PM [facility] Chloride 104 96 - 110 mmol/L LAB CHEMISTRY METHOD 04/18/2024 2:57 PM [facility] CO2 29 21 - 32 mmol/L LAB CHEMISTRY METHOD 04/18/2024 2:57 PM [facility] Anion Gap 4 3 - 11 LAB CHEMISTRY METHOD 04/18/2024 2:57 PM [facility] Glucose 151(H) 70 - 100 mg/dL LAB CHEMISTRY METHOD 04/18/2024 2:57 PM [facility] BUN 14 5 - 25 mg/dL LAB CHEMISTRY METHOD 04/18/2024 2:57 PM [facility] Creatinine 0.71 0.50 - 1.10 mg/dL LAB CHEMISTRY METHOD 04/18/2024 2:57 PM [facility] eGFR 99 >=60 mL/min/1. 73m2 LAB CHEMISTRY METHOD 04/18/2024 2:57 PM [facility] Comment:Calculation based on the??Chronic Kidney Disease Epidemiology Collaboration (CKD-EPI) equation refit??without adjustment for race. BUN/Creatinine Ratio 19.7 LAB CHEMISTRY METHOD 04/18/2024 2:57 PM [facility] Calcium 9.4 8.5 - 10.5 mg/dL LAB CHEMISTRY METHOD 04/18/2024 2:57 PM [facility] AST (SGOT) 28 10 - 42 unit/L LAB CHEMISTRY METHOD 04/18/2024 2:57 PM [facility] ALT (SGPT) 46 10 - 60 unit/L LAB CHEMISTRY METHOD 04/18/2024 2:57 PM [facility] Alkaline Phosphatase 82 42 - 121 unit/L LAB CHEMISTRY METHOD 04/18/2024 2:57 PM [facility] Total Protein 7.3 6.0 - 8.0 g/dL LAB CHEMISTRY METHOD 04/18/2024 2:57 PM EST [facility] Albumin 4.3 3.2 - 5.0 g/dL LAB CHEMISTRY METHOD 04/18/2024 2:57 PM EST [facility] Total Bilirubin 1.2 0.0 - 1.4 mg/dL LAB CHEMISTRY METHOD 04/18/2024 2:57 PM EST [facility] Blood Venous blood specimen / Unknown Venipuncture / Unknown 04/18/2024 8:57 AM EST 04/18/2024 8:57 AM EST Danelle ROLON LAB BLOOD ORDERABLES Final Resu lt Performing Organization Address [facility]/ZIP Co de Phone Number [facility] [address] [place] [address], [place] [phone] * Trichomonas vaginalis antigen (02/24/2024 3:40 PM EST) Trichomonas vaginalis Negative Negative 02/24/2024 8:10 PM EST [facility] Swab Vaginal structure / Unknown Non-blood Collection / Unknown 02/24/2024 3:40 PM EST 02/24/2024 3:40 PM EST Rahel Pope CNM LAB MICROBIOLOGY - GENE RAL ORDERABLES Final Result Performing Organization Address [facility]/ZIP Co de Phone Number [facility] [address] [place] [address], [place] [phone] * Wet prep, genital (02/24/2024 3:40 PM EST) Clue Cells, Wet Prep Negative Negative 02/24/2024 7:39 PM EST [facility] Yeast, Wet Prep Negative Negative 02/24/2024 7:39 PM EST [facility] Trichomonas, Wet Prep Indeterminate Negative 02/24/2024 7:39 PM EST [facility] Comment:Refer to Trichomonas antigen. Swab Vaginal structure / Unknown Non-blood Collection / Unknown 02/24/2024 3:40 PM EST 02/24/2024 3:40 PM EST Rahel Pope [facility] LAB MICROBIOLOGY - GENE RAL ORDERABLES Final Result [facility] [address] [place] [address], [place] [phone] * Diabetes Foot Exam (12/27/2023) [facility] Diabetes: Annual Foot Exam Abstracted [facility] Provider MD HEALTH MAINTENANCE Final Result * Stool Based Tests (FOBT/FIT) (11/22/2023) [facility] Colorectal Cancer Screening: Stool Based Tests Abstracted [facility] Provider MD HEALTH MAINTENANCE Final Result * Diabetes Eye Exam (03/03/2023) [facility] Diabetes: Annual Retina Eye Exam Abstracted [facility] Provider MD HEALTH MAINTENANCE Final Result * SCREENING MAMMOGRAPHY BI 2-VIEW BREAST INC CAD (12/29/2022 5:11 PM EDT) Anatomical Region Laterality Modality Radiographic Shannon ging 12/24/2021 6:14 PM EDT Narrative 12/30/2022 12:21 PM EDT This is a summary report. The complete report is available in the patient's medical record. If you cannot access the medical record, please contact the sending organization for a detailed fax or copy. Full field digital screening tomosynthesis mammography, reviewed with CAD and compared to previous. The breasts are composed of fatty and fibroglandular tissue. ??No suspicious mass, architectural distortion or suspicious calcifications are identified. IMPRESSION: : No mammographic evidence of malignancy. BIRADS 1-Negative; N. 5 year breast cancer risk assessment 1.3 % Lifetime breast cancer risk assessment 8.0 % Breast cancer risk category Low (<15%) Procedure Note Tony Lunsford MD - 04/18/2023 This is a summary report. The complete report is available in thepatient's medical record. If you cannot access the medical record, pleasecontact the sending organization for a detailed fax or copy. Full field digital screening tomosynthesis mammography, reviewed with CADand compared to previous. The breasts are composed of fatty andfibroglandular tissue. No suspicious mass, architectural distortion orsuspicious calcifications are identified. IMPRESSION: : No mammographic evidence of malignancy. BIRADS 1-Negative; N. 5 year breast cancer risk assessment 1.3 % Lifetime breast cancer risk assessment 8.0 % Breast cancer risk category Low (<15%) Radha Mitchell MD IMG XR PROCEDURES Final Res ult * Cervical Cancer Screening: HPV (11/17/2022) Cervical Cancer Screening: HPV No interpretation , abstracted Historical Provider HEALTH MAINTENANCE Final Result * Hepatitis C Screening (10/19/2021) Hepatitis C Screening Abstracted Historical Provider HEALTH MAINTENANCE Final Result from Last 3 Months or Most Recently Relevant to Health Maintenance Insurance [facility] Care Teams [employer] Surface Relationship Specialty Start Date End Date Brooklyn Bee MD [address] [place] [id number] PCP - General Internal Medicine 10/22/21
== END 2024-05-24 15:42 | disposition home or self-care (01) ==
PROVIDERS: PCP Internal Medicine; Visit Provider Internal Medicine
DX: I25.10 Atherosclerotic heart disease of native coronary artery without angina pectoris (principal); I25.5 Ischemic cardiomyopathy; E11.8 Type 2 diabetes mellitus with unspecified complications
CPT/HCPCS: 93010; 99214

== ENCOUNTER → 2024-05-24 14:54 | Outpatient (BNVA) | payer BC, SELFPAY | PROVIDERS: PCP Internal Medicine; Visit Provider Internal Medicine | DX: I25.10 Atherosclerotic heart disease of native coronary artery without angina pectoris (principal); I25.5 Ischemic cardiomyopathy; E11.8 Type 2 diabetes mellitus with unspecified complications | CPT/HCPCS: 93005 ==